=== PATIENT | female | born 1985 | race Caucasian/White ===

== ENCOUNTER 2021-01-30 08:53 | Emergency (ER) | payer MEDICAID ==
[~2021-01-30] VITALS: Ht 165.1 cm; Wt 60.0 kg
[2021-01-30 09:39] LABS: CLARITY URINE CLEAR (CLEAR); COLOR URINE YELLOW (YELLOW); KETONES URINE NEGATIVE (NEGATIVE); LEUKOCYTE ESTERASE URINE NEGATIVE (NEGATIVE); NITRITE URINE NEGATIVE (NEGATIVE); OCCULT BLOOD URINE NEGATIVE (NEGATIVE); PH URINE 7.5 (4.5-8.0); PROTEIN URINE NEGATIVE (NEGATIVE); SPECIFIC GRAVITY URINE 1.004 (1.005-1.030); UROBILINOGEN URINE 0.2 E.U./dL (0.2-1.0)
[2021-01-30 10:54] VITALS: BP 100/78
== END 2021-01-30 10:54 | disposition home or self-care (01) ==
LOC: ER 08:53
DX: R00.2 Palpitations (principal); F17.200 Nicotine dependence, unspecified, uncomplicated
CPT/HCPCS: 81003; 81025; 82962; 93005; 99284; Z7610